=== PATIENT | female | born 1980 | race Caucasian/White ===

== ENCOUNTER → 2018-08-15 | Emergency (ER) | payer OTHER ==
[~2018-08-15] VITALS: Ht 165.1 cm; Wt 70.8 kg
[~2018-08-15] MED LIST: INTESTINEX680 M1 PO; PROTONIX40 MG PO
== END | disposition home or self-care (01) ==
LOC: ER 22:29
DX: K52.9 Noninfective gastroenteritis and colitis, unspecified (principal); E86.0 Dehydration

== ENCOUNTER → 2019-06-24 08:23 | Outpatient (CLI) | payer OTHER | END | disposition home or self-care (01) | LOC: LAB 08:23 | DX: Z34.01 Encounter for supervision of normal first pregnancy, first trimester (principal); Z3A.11 11 weeks gestation of pregnancy ==

== ENCOUNTER 2021-05-24 13:11 | Emergency (ER) | payer OTHER ==
[~2021-05-24] VITALS: Ht 165.1 cm; Wt 72.1 kg
[2021-05-24] MEDS ORDERED: IMITREX100 MG PO (18:29)
== END 2021-05-24 18:44 | disposition home or self-care (01) ==
LOC: ER 13:11
DX: G43.909 Migraine, unspecified, not intractable, without status migrainosus (principal)

== ENCOUNTER 2021-07-13 23:48 | Emergency (ER) | payer OTHER ==
[~2021-07-13] VITALS: Ht 165.1 cm; Wt 70.8 kg
[~2021-07-13 23:48] MED LIST changes: +IMITREX100 MG PO
[2021-07-14] MEDS ORDERED: AZITHROMYCIN500 MG PO ×2 (00:01→06:17)
[2021-07-14] MEDS ORDERED: DEXAMETHAS0.5 MG/5 M PO (00:01)
[2021-07-14] MEDS ORDERED: BUDESONIDE0.5 MG/21 IH (00:01)
[2021-07-14] MEDS ORDERED: FLONASE16 GM NS (00:01)
[2021-07-14] MEDS ORDERED: ALBUTEROL2.5 MG/3 M IH (00:01)
[2021-07-14] MEDS ORDERED: LORATADINE10 MG PO (00:02)
[2021-07-14] MEDS ORDERED: IVERMECTIN3 MG PO (06:17)
[2021-07-14] MEDS ORDERED: ACETAMINOPHEN650 M2 PO (06:17)
[2021-07-14] MEDS ORDERED: MELATONIN10 M2 PO (06:17)
[2021-07-14] MEDS ORDERED: PROAIR RESPICL90 MCG IH (06:30)
== END 2021-07-14 06:58 | disposition home or self-care (01) ==
LOC: ER 23:48
DX: U07.1 COVID-19 (principal); B96.0 Mycoplasma pneumoniae [M. pneumoniae] as the cause of diseases classified elsewhere; R05 Cough; J02.9 Acute pharyngitis, unspecified

== ENCOUNTER 2022-01-25 19:07 | Emergency (ER) | payer OTHER ==
[~2022-01-25] VITALS: Ht 165.1 cm; Wt 72.1 kg
[~2022-01-25 19:07] MED LIST changes: +ACETAMINOPHEN650 M2 PO; +ALBUTEROL2.5 MG/3 M IH; +AZITHROMYCIN500 MG PO; +BUDESONIDE0.5 MG/21 IH; +DEXAMETHAS0.5 MG/5 M PO; +FLONASE16 GM NS; +IVERMECTIN3 MG PO; +LORATADINE10 MG PO; +MELATONIN10 M2 PO; +PROAIR RESPICL90 MCG IH
[2022-01-25] MEDS ORDERED: [UNRECOGNIZED DRUG - OTHER] (19:26)
== END 2022-01-25 22:22 | disposition home or self-care (01) ==
LOC: ER 19:07
DX: A05.9 Bacterial foodborne intoxication, unspecified (principal); E86.0 Dehydration